=== PATIENT | female | born 1970 | race Caucasian/White ===

== ENCOUNTER 2020-01-30 15:05 | Inpatient (IN) | payer BC ==
[~2020-01-30] VITALS: Ht 157.5 cm; Wt 77.6 kg
[2020-01-30] MEDS ORDERED: ONDANSETRON 4 MG/2 ML (SDV) Z0FRAN IV PRN (15:15)
[2020-01-30] MEDS ORDERED: MELATONIN 3 MG TABLET PO PRN (15:15)
[2020-01-30] MEDS ORDERED: ONDANSETRON 4 MG (ZOFRAN) ORAL DISSOLVE TAB PO PRN (15:15)
[2020-01-30] MEDS ORDERED: ACETAMINOPHEN 325 MG TABLET PO PRN (15:15)
--- NOTE | 2020-01-30 16:50 | NUR ---
RECEIVED FROM [facility], O2 ON PER NC AT 2 LITERS, SALINE LOCK IN LEFT AC, DENIES PAIN, CALL LIGHT WITHIN REACH, ORIENTED TO ROOM AND ISOLATION
--- OUTSIDE RECORDS SUMMARY | 2020-01-30 17:19 | XMS REPORT | Clinical Summary ---
Author Author [facility] Address Unknown Phone Unavailable Care Team Providers Care Staffing Manager Name Role Phone Yesika Lewis MD PP Allergies Comments Active Allergy Reactions Severity Noted Date Ibuprofen Shortness Of High 02/02/2016 Breath Bupropion Shortness Of High 02/02/2016 Breath Medications End Date Status Medication Sig Dispensed Refills Start Date Active etanercept (ENBREL INJECT 1 PEN 12 syringe 3 SURECLICK) 50 MG/ML (50 MG) 8 injectionIndications: SUBCUTANEOUSL Rheumatoid arthritis Y EVERY SEVEN involving multiple sites DAYS. with positive rheumatoid factor (HCC) Active predniSONE (DELTASONE) 5 Take 20 mg x 90 tablet 0 MG tabletIndications: 2 days, 15 mg 9 Rheumatoid arthritis x 2 days, 10 involving multiple sites mg x 2 days, with positive rheumatoid then stay on factor (HCC) 5 mg daily Active Problems Problem Noted Date COPD (chronic obstructive pulmonary disease) 017 Raynaud's disease without gangrene 05/18/2017 Rheumatoid arthritis involving multiple sites with po sitive rheumatoid 02/14/2016 factor Family History Medical History Relation Name Comments No Known Problems Daughter No Known Problems Daughter No Known Problems Daughter Crohn's disease Father Arthritis Mother COPD Mother Diabetes Mother Heart disease Mother Thyroid disease Mother Thyroid disease Sister No Known Problems Sister Relation Name Status Comments Daughter Alive Daughter Alive Daughter Alive Father Exsanguinated Mother Alive Sister Alive Sister Alive Sister House fire (Age 10) Social History Date Tobacco Use Types Packs/Day Years Used Current Every Day Smoker Cigarettes 1 23 Smokeless Tobacco: Former Snuff User Tobacco Cessation: Ready to Quit: No; Co unseling Given: Yes Drinks/Week oz/Week Comments Alcohol Use 0 Standard drinks or equivalent 0.0 No Control Partners Comments Sexually Active Male Yes Sex Assigned at Date Recorded Not on file Industry Job Start Date Occupation Not on file Not on file Not on file Travel End Travel History Travel Start No recent travel history available. Last Filed Vital Signs Reading Time Taken Comments Vital Sign 120/75 06/28/2019 9:11 AM CDT Blood Pressure 93 07/16/2017 9:04 AM CDT Pulse - - Temperature - - Respiratory Rate 98% 07/16/2017 9:04 AM CDT Oxygen Saturation - - Inhaled Oxygen Concentration 81.9 kg (180 lb 8 oz) 06/16/2018 1:01 PM CDT Weight 155.6 cm (5' 1.25") 06/16/2018 1:01 PM CDT Height 33.83 06/16/2018 1:01 PM CDT Body Mass Index Plan of Treatment Care Team Description Date Type Specialty Quincy Alanis MD [address] [id number] 06/26/2020 Office Visit Health Maintenance Due Date Last Done Comments Pneumo-Vaccine: Peds (0-5 01/19/1976 Yrs) & At-Risk Patients (6-64 Yrs) (1 of 1 - PPSV23) DTaP,Tdap,and Td Vaccines 1989 (1 - Tdap) MMR Vaccines-Adult 1989 Cervical Cancer Screening 1991 Influenza Vaccine (#1) 2019 08/15/2015 Breast Cancer 01/19/2020 Screening-Mammogram Colon Cancer Screening 01/19/2020 Zoster Recombinant 01/19/2020 Vaccine (RZV,Shingrix) (1 of 2 - SV 2 Dose Standard) Results Not on filefrom Last 3 Months Insurance Type Payer Benefit Subscriber ID Effective Phone Address Plan / Dates Group BCBS BCBS [employer] xxxxxxxxxxxx 2016-P [phone] [address] [place] [place] [address] Advance Directives For more information, please contact: [phone] Patient Revival Clerk Explanation Type Date Recorded Advance Directives and Living Will Power of Certified Breastfeeding Educator
--- NOTE | 2020-01-30 17:20 | NUR ---
YECENIA GAINES admitted to room 433-1, with an admitting diagnosis of INF A +, COPD, on 01/30/20 from [facility] via [facility], accompanied by EMS STAFF.YECENIA GAINES introduced to surroundings, call light, bed controls, phone, TV, temperature control, lights, meal times, smoking policy, visitor policy, side rail policy, bathrooms and showers. Patient Rights given to patient in the handbook. YECENIA GAINES verbalizes understanding that [facility] is not responsible for the loss or damage to any personal effects or valuables that are kept in the patients posession during their hospitalization. The following Patient Care Plans were discussed with the PT: Discharge Planning, ANXIETY, IMP GAS EXCH, INEFF BREATHING PATTERN, INEFF AIRWAY CLEARANCE, RISK FOR INFECTION, AND ACT INTOL. YECENIA GAINES verbalizes understanding of Interdisciplinary Patient Education. Patient and/or family were informed about the Rapid Response Team and its purpose.
[2020-01-30 17:31] VITALS: BP 116/56
[2020-01-30 19:02] LABS: BASOPHILS % (AUTO) 0 % (0-10); EOSINOPHILS % (AUTO) 0 % (0-10); HEMATOCRIT 35 % (35-52); HEMOGLOBIN 11.6 G/DL (11.5-16.0); LYMPHOCYTES # (AUTO) 1.1 X 10^3 (1.0-4.0); LYMPHOCYTES % (AUTO) 11 % (12-44); MEAN CORPUSCULAR HEMOGLOBIN 28 PG (25-34); MEAN CORPUSCULAR HGB CONC 33 G/DL (32-36); MEAN CORPUSCULAR VOLUME 85 FL (80-99); MONOCYTES # (AUTO) 0.7 X 10^3 (0.0-1.0); MONOCYTES % (AUTO) 8 % (0-12); NEUTROPHILS % (AUTO) 81 % (42-75); PLATELET COUNT 252 10^3/uL (130-400); RED CELL DISTRIBUTION WIDTH 14.6 % (10.0-14.5); WHITE BLOOD COUNT 9.9 10^3/uL (4.3-11.0)
[2020-01-30 19:37] LABS: ERYTHROCYTE SEDIMENTATION RATE 112 MM/HR (0-30)
[2020-01-30 19:54] LABS: ALANINE AMINOTRANSFERASE 20 U/L (0-55); ALBUMIN 3.5 GM/DL (3.2-4.5); ALKALINE PHOSPHATASE 77 U/L (40-136); BILIRUBIN,TOTAL 0.3 MG/DL (0.1-1.0); BUN/CREATININE RATIO 15; CALCIUM 8.1 MG/DL (8.5-10.1); CARBON DIOXIDE 21 MMOL/L (21-32); CHLORIDE 106 MMOL/L (98-107); CREATININE SERUM 0.81 MG/DL (0.60-1.30); GFR ESTIMATED > 60; GLUCOSE 182 MG/DL (70-105); SODIUM 139 MMOL/L (135-145); TOTAL PROTEIN 7.6 GM/DL (6.4-8.2)
[2020-01-30] MEDS ORDERED: ENOXAPARIN 40 MG/0.4 ML (LOVENOX) SYR ONE (20:00)
[2020-01-30] MEDS: ENOXAPARIN 40 MG/0.4 ML (LOVENOX) SYR SC SCH (20:45)
[2020-01-30 20:56] VITALS: BP 127/69
[2020-01-30] MEDS: OSELTAMIVIR 75 MG (TAMIFLU) CAPSULE PO SCH (20:58)
[2020-01-31] VITALS (7 sets, daily range): BP systolic 124–156; BP diastolic 61–79
[2020-01-31 05:08] LABS: BASOPHILS % (AUTO) 0 % (0-10); EOSINOPHILS % (AUTO) 0 % (0-10); HEMATOCRIT 36 % (35-52); HEMOGLOBIN 11.7 G/DL (11.5-16.0); LYMPHOCYTES # (AUTO) 1.5 X 10^3 (1.0-4.0); LYMPHOCYTES % (AUTO) 12 % (12-44); MEAN CORPUSCULAR HEMOGLOBIN 28 PG (25-34); MEAN CORPUSCULAR HGB CONC 32 G/DL (32-36); MEAN CORPUSCULAR VOLUME 86 FL (80-99); MEAN PLATELET VOLUME 9.9 FL (7.4-10.4); MONOCYTES # (AUTO) 0.8 X 10^3 (0.0-1.0); MONOCYTES % (AUTO) 6 % (0-12); NEUTROPHILS # (AUTO) 9.9 X 10^3 (1.8-7.8); NEUTROPHILS % (AUTO) 81 % (42-75); PLATELET COUNT 249 10^3/uL (130-400); RED CELL DISTRIBUTION WIDTH 14.9 % (10.0-14.5); WHITE BLOOD COUNT 12.1 10^3/uL (4.3-11.0)
[2020-01-31 05:35] LABS: BUN/CREATININE RATIO 18; CALCIUM 8.7 MG/DL (8.5-10.1); CARBON DIOXIDE 24 MMOL/L (21-32); CHLORIDE 105 MMOL/L (98-107); CREATININE SERUM 0.78 MG/DL (0.60-1.30); GFR ESTIMATED > 60; GLUCOSE 160 MG/DL (70-105); POTASSIUM 4.6 MMOL/L (3.6-5.0); SODIUM 141 MMOL/L (135-145)
[2020-01-31] MEDS ORDERED: RT-ALBUTEROL/IPRATROPIUM 3 ML (DUONEB) VIAL INH SCH (07:15)
--- NOTE | 2020-01-31 07:17 | Pulmonary Consultation ---
History of Present Illness History of Present Illness Date Seen by Provider: Jan 31, 2020 Time Seen by Provider: 07:09 Date of Admission History of Present Illness 50yo transferred to 4th floor [place] [facility] with admitting dx of Influ A, COPDAE Allergies and Home Medications Allergies Coded Allergies: ibuprofen (Verified Allergy, Mild, 01/30/20) bupropion (Verified Allergy, Unknown, 01/30/20) Past Eigimja-Lttmmd-Athcwk Hx Patient Social History Recent Foreign Travel: No Contact w/Someone Who Travel: No Recent Infectious Disease Expo: No Immunizations Up To Date Date of Influenza Vaccine: Aug 01, 2019 Past Medical History : No Family Medical History Asthma DAUGHTERS Diabetes mellitus 19 MOTHER Gastroenteritis 19 FATHER Hypertension 19 MOTHER Thyroid disease 19 MOTHER G8 SISTER Tuberculosis Review of Systems Time Seen by Provider: 07:21 Sepsis Event Evaluation Height, Weight, BMI Height: '" Weight: lbs. oz. kg; 31.28 BMI Method: Exam Exam Vital Signs Date Time Temp Pulse Resp B/P (MAP) Pulse Ox O2 Delivery O2 Flow Rate FiO2 01/31/20 03:12 36.0 88 20 148/75 (99) 93 Nasal Cannula 2.00 01/31/20 01:05 80 01/31/20 00:29 36.0 87 20 156/79 (104) 93 Nasal Cannula 2.00 01/30/20 21:00 Nasal Cannula 2.00 01/30/20 20:56 36.0 93 20 127/69 (88) 94 Nasal Cannula 2.00 01/30/20 19:00 97 01/30/20 18:20 109 01/30/20 18:00 Nasal Cannula 2.00 01/30/20 17:31 36.6 94 22 116/56 94 Nasal Cannula 2.00 I & O 01/31/20 07:00 Intake Total 1200 ml Balance 1200 ml Height & Weight Height: '" Weight: lbs. oz. kg; 31.28 BMI Method: Capillary Refill: Less Than 3 Seconds Results Lab Laboratory Tests 01/30/20 18:50 01/31/20 04:50 Assessment/Plan Assessment/Plan Influenza A r/o secondary infection -Start rocephin and azithromycin -Check corbett cultures -Check LA -Continue Tamiflu COPDAE -start DuoNeb and advair -Check CXR -Check ABG -Start Abx DMITRY SETHI DO Jan 31, 2020 07:17
[2020-01-31] MEDS ORDERED: RT-ALBUTEROL/IPRATROPIUM 3 ML (DUONEB) VIAL INH PRN (07:30)
[2020-01-31 07:50] LABS: MAGNESIUM 2.7 MG/DL (1.6-2.4); PHOSPHORUS 3.9 MG/DL (2.3-4.7)
[2020-01-31] MEDS: cefTRIAXone FOR IV USE 1,000 MG in WATER (STERILE) FOR INJECTION 10 ML IV SCH ×3 (08:10→10:28)
[2020-01-31] MEDS: OSELTAMIVIR 75 MG (TAMIFLU) CAPSULE PO SCH ×2 (08:10→20:13)
[2020-01-31] MEDS ORDERED: ALBUTEROL/IPRATROP (COMBIVENT RESPIMAT) 4 GM INHALER IH PRN (08:15)
[2020-01-31 08:55] LABS: ABG BASE EXCESS 0.7 MMOL/L (-2.5-2.5); ABG OXYGEN SATURATION 97 % (94-100); ABG PCO2 43 MMHG (35-45); ABG PH 7.39 (7.37-7.43); ABG PO2 120 MMHG (79-93); ABG TCO2 26.6 MMOL/L (21.0-31.0); ALLENS TEST POSITIVE; INSPIRED O2 2 L; PATIENT TEMP 36.7; VENTILATOR NO
[2020-01-31] MEDS: ADVAIR HFA 115/21 MCG INHALER 8 GM IH SCH ×2 (08:57→19:00)
[2020-01-31] MEDS ORDERED: AZITHROMYCIN INJECTION 500 MG in NS (IVPB) 250 ML IV NR (09:00)
[2020-01-31] MEDS: ALBUTEROL/IPRATROP (COMBIVENT RESPIMAT) 4 GM INHALER IH SCH ×4 (10:26→21:52)
[2020-01-31] MEDS: LACTATED RINGERS 1,000 ML IV SCH ×2 (11:15→17:57)
[2020-01-31] MEDS ORDERED: FLUT1AER IN (11:54)
[2020-01-31] MEDS ORDERED: ACET325T38 PO (11:54)
[2020-01-31] MEDS ORDERED: ETAN50PE SC (11:54)
--- NOTE | 2020-01-31 11:58 | NUR ---
CALLED THE PTS ROOM PHONE AND WENT THRU THE EXT MED HISTORY TO COMPLETE THE MED REC SHE WAS ABLE TO TELL ME HER HOME MEDS AND HOW SHE TAKES THEM MATCHES THE EXT MED HIST OTC MEDS: TYLENOL- PRN
--- NOTE | 2020-01-31 12:06 | Diagnostic Imaging Report ---
EXAMINATION: Chest radiograph, portable AP view. DATE: 01/31/2020 8:09 AM hours. INDICATION: 50-year-old female, shortness of breath. COMPARISON: None. FINDINGS: Heart size and mediastinal contours are unremarkable. There is no identified pneumothorax. There is no large pleural effusion. There are reticulonodular appearing opacities in the lungs bilaterally. There are mild bilateral acromioclavicular degenerative changes. IMPRESSION: 1. Reticulonodular appearing opacities in the lungs bilaterally. Infectious and inflammatory etiologies are considered. Dictated by: Dictated on workstation # [id number]
[2020-01-31] MEDS: ENOXAPARIN 40 MG/0.4 ML (LOVENOX) SYR SC SCH (14:29)
--- NOTE | 2020-01-31 16:28 | History & Physical-Hospitalist ---
History of Present Illness HPI/Chief Complaint Татьяна Medina is a 50 year old female with PMH rheumatoid arthritis on Enbrel, COPD, who presented with shortness of breath. She reports that she has not been feeling well for almost a week. She was exposed to a relative that had influenza B. She worsened and presented to [facility] [place]. She was found to have influenza A. She r eports that she had been having fevers at home. She also reports a dry cough. She reports runny nose and sore throat. She reports myalgias. She denies any chest pain. She denies abdominal pain, nausea, and vomiting. She denies back pain. She denies specific joint complaints. She says she has been on Enbrel for about 7 years. She does not wear oxygen at home. Source: patient Exam Limitations: no limitations Date Seen 01/31/20 Time Seen by a Provider: 08:50 Attending Physician Jenifer Monroe MD PCP Yesika Lewis MD Referring Physician Date of Admission Jan 30, 2020 at 16:30 Home Medications & Allergies Home Medications Reviewed patient Home Medication Reconciliation performed by pharmacy medication reconciliations transmission technician and/or nursing. Patients Allergies have been reviewed. Allergies Allergies Coded Allergies ibuprofen (Verified Allergy, Mild, 01/30/20) bupropion (Verified Allergy, Unknown, 01/30/20) Past Tufwsfa-Sajfsi-Fjlxdg Hx Past Med/Social Hx: Reviewed Nursing Past Med/Soc Hx Patient Social History Recent Foreign Travel: No Contact w/other who traveled: No Recent Infectious Disease Expo: No Immunizations Up To Date Date of Influenza Vaccine: Aug 01, 2019 Past Medical History : No Family History Asthma DAUGHTERS Diabetes mellitus 19 MOTHER Gastroenteritis 19 FATHER Hypertension 19 MOTHER Thyroid disease 19 MOTHER G8 SISTER Tuberculosis Review of Systems Constitutional: fever, malaise EENTM: throat pain Respiratory: cough, short of breath Cardiovascular: no symptoms reported Gastrointestinal: no symptoms reported Genitourinary: no symptoms reported Musculoskeletal: no symptoms reported Skin: no symptoms reported Psychiatric/Neurological: No Symptoms Reported Physical Exam Physical Exam Vital Signs Vital Signs - First Documented 01/30/20 17:31 Temp 36.6 Pulse 94 Resp 22 B/P (MAP) 116/56 Pulse Ox 94 O2 Delivery Nasal Cannula O2 Flow Rate 2.00 Capillary Refill : Less Than 3 SecondsLess Than 3 Seconds Height, Weight, BMI Height: '" Weight: lbs. oz. kg; 31.28 BMI Method: General Appearance: No Apparent Distress, Chronically ill Respiratory: No Accessory Muscle Use, No Respiratory Distress, Wheezing Cardiovascular: Regular Rate, Rhythm, No Murmur Gastrointestinal: Normal Bowel Sounds, Non Tender, Soft Extremity: Normal Inspection, Non Tender, Pedal Edema Neurologic/Psychiatric: Alert, Oriented x3, No Motor/Sensory Deficits, Normal Mood/Affect Skin: Normal Color, Warm/Dry Results Results/Procedures Labs Laboratory Tests 01/30/20 18:50 01/31/20 04:50 Patient resulted labs reviewed. Assessment/Plan Admission Diagnosis Acute respiratory failure with hypoxia Admission Status: Inpatient Order (span 2 midnights) Reason for Inpatient Admission: Respiratory failure requiring further evaluation and treatment Assessment and Plan Acute respiratory failure with hypoxia Influenza A infection Possible pneumonia COPD -Influenza test positive for Flu A -Started on Tamiflu -WBC normal, afebrile since admission -CXR with bilateral opacities -Procal slightly elevated -Started on Rocephin and Azithromycin -COVID test pending -Supplemental oxygen as needed -Pulmonology consulted, appreciate assistance -Aparna and Al ordered Rheumatoid arthritis Immunosuppression -Clinically significant, no acute management needs DVT Prophylaxis: Lovenox Diagnosis/Problems Diagnosis/Problems (1) Influenza A (2) Acute respiratory failure with hypoxia (3) Rheumatoid arthritis (4) Immunosuppression due to drug therapy (5) COPD (chronic obstructive pulmonary disease) Clinical Quality Measures DVT/VTE Risk/Contraindication: Risk Factor Score Per Nursin RFS Level Per Nursing on Admit: 4+=Very High LORRIE BENITES MD Jan 31, 2020 16:28
[2020-01-31 16:35] LABS: BILIRUBIN,URINE NEGATIVE (NEGATIVE); CLARITY,URINE TURBID; COLOR,URINE YELLOW; GLUCOSE, URINE (UA) NEGATIVE (NEGATIVE); KETONES,URINE NEGATIVE (NEGATIVE); LEUKOCYTE ESTERASE ,URINE NEGATIVE (NEGATIVE); NITRITE,URINE NEGATIVE (NEGATIVE); PROTEIN,URINE TRACE (NEGATIVE)
[2020-01-31 16:42] LABS: AMORPHOUS SEDIMENT,UR MOD AMOR URATES /LPF; BACTERIA,URINE LARGE /HPF; RBC,URINE RARE /HPF; SQUAMOUS EPITHELIAL CELL,UR 0-2 /HPF; WBC,URINE RARE /HPF
[2020-01-31] MEDS ORDERED: ALPRAZolam 0.25 MG (XANAX) TAB PO PRN (21:30)
[2020-01-31] MEDS ORDERED: CALCIUM CARBONATE 500 MG (TUMS) TAB.CHEW PO PRN (21:30)
[2020-01-31] MEDS ORDERED: diphenhydrAMINE 25 MG TAB (BENADRYL) PO PRN (21:30)
[2020-01-31] MEDS ORDERED: HYDROcodone/APAP 5 MG/325 MG (LORTAB) TAB PO PRN (21:30)
[2020-01-31] MEDS ORDERED: ONDANSETRON 4 MG/2 ML (SDV) Z0FRAN IVP PRN (21:30)
[2020-01-31] MEDS ORDERED: MELATONIN 3 MG TABLET PO PRN (21:30)
[2020-02-01] MEDS: ALBUTEROL/IPRATROP (COMBIVENT RESPIMAT) 4 GM INHALER IH SCH ×4 (02:02→10:28)
[2020-02-01] MEDS: LACTATED RINGERS 1,000 ML IV SCH ×2 (02:03→10:45)
[2020-02-01 05:22] VITALS: BP 131/75
--- NOTE | 2020-02-01 06:29 | Pulmonary Progress Note ---
Subjective Date Seen by a Provider: Feb 01, 2020 Time Seen by a Provider: 06:57 Subjective/Events-last exam Pt wants to go home. Sepsis Event Evaluation Height, Weight, BMI Height: '" Weight: lbs. oz. kg; 31.28 BMI Method: Focused Exam Lactate Level 01/31/20 11:10: Lactic Acid Level 1.44 Exam Exam Vital Signs Date Time Temp Pulse Resp B/P (MAP) Pulse Ox O2 Delivery O2 Flow Rate FiO2 02/01/20 05:22 36.6 78 20 131/75 (93) 95 Nasal Cannula 3.50 3.50 02/01/20 01:06 90 01/31/20 23:24 36.6 78 20 146/72 (96) 93 Nasal Cannula 3.50 3.50 01/31/20 20:12 36.4 82 20 145/62 (89) 93 Nasal Cannula 3.50 01/31/20 20:00 Nasal Cannula 3.50 01/31/20 19:16 Nasal Cannula 2.00 01/31/20 19:07 101 01/31/20 19:00 98 Nasal Cannula 3.00 01/31/20 17:07 36.4 87 20 130/65 (86) 97 Nasal Cannula 3.50 01/31/20 14:00 Nasal Cannula 2.00 01/31/20 12:25 36.0 92 20 124/61 (82) 95 Nasal Cannula 2.00 01/31/20 12:23 100 01/31/20 10:33 Nasal Cannula 2.00 01/31/20 08:47 Nasal Cannula 2.00 01/31/20 08:30 36.8 01/31/20 08:25 35.2 99 22 133/62 (85) 93 Nasal Cannula 2.00 01/31/20 08:15 Nasal Cannula 2.00 01/31/20 07:00 94 I & O 02/01/20 07:00 Intake Total 2500 ml Output Total 1450 ml Balance 1050 ml Height & Weight Height: '" Weight: lbs. oz. kg; 31.28 BMI Method: General Appearance: No Apparent Distress, Chronically ill Respiratory: No Accessory Muscle Use, No Respiratory Distress, Wheezing Cardiovascular: Regular Rate, Rhythm, No Murmur Capillary Refill: Less Than 3 Seconds Extremity: Normal Inspection, Non Tender, Pedal Edema Neurologic/Psychiatric: Alert, Oriented x3, No Motor/Sensory Deficits, Normal Mood/Affect Skin: Normal Color, Warm/Dry Results Lab Laboratory Tests 01/30/20 18:50 01/31/20 04:50 Assessment/Plan Assessment/Plan Influenza A r/o secondary infection with hypoxia - rocephin and azithromycin -Check corbett cultures -Repeat labs pending -Continue Tamiflu -COVID is negative COPDAE -start DuoNeb and advair -Check CXR -Check ABG -Start Abx -Pt may need home 02 upon discharge Tobacco dependance -Education RA Possible home today await repeat labs and home 02 qualification. Pt wants to go home today DMITRY SETHI DO Feb 01, 2020 06:29
[2020-02-01 07:27] LABS: HEMOGLOBIN 11.6 G/DL (11.5-16.0); MEAN PLATELET VOLUME 9.5 FL (7.4-10.4); RED CELL DISTRIBUTION WIDTH 15.3 % (10.0-14.5); WHITE BLOOD COUNT 11.6 10^3/uL (4.3-11.0)
[2020-02-01] MEDS: ADVAIR HFA 115/21 MCG INHALER 8 GM IH SCH (07:31)
[2020-02-01 07:51] LABS: ALANINE AMINOTRANSFERASE 33 U/L (0-55); ALBUMIN 3.4 GM/DL (3.2-4.5); ALKALINE PHOSPHATASE 72 U/L (40-136); BILIRUBIN,TOTAL 0.2 MG/DL (0.1-1.0); BUN/CREATININE RATIO 19; CALCIUM 8.7 MG/DL (8.5-10.1); CARBON DIOXIDE 22 MMOL/L (21-32); CHLORIDE 106 MMOL/L (98-107); CREATININE SERUM 0.79 MG/DL (0.60-1.30); GFR ESTIMATED > 60; GLUCOSE 115 MG/DL (70-105); MAGNESIUM 2.2 MG/DL (1.6-2.4); PHOSPHORUS 3.2 MG/DL (2.3-4.7); POTASSIUM 3.8 MMOL/L (3.6-5.0); SODIUM 142 MMOL/L (135-145); TOTAL PROTEIN 7.4 GM/DL (6.4-8.2)
[2020-02-01] MEDS: cefTRIAXone FOR IV USE 1,000 MG in WATER (STERILE) FOR INJECTION 10 ML IV SCH (08:14)
[2020-02-01] MEDS ORDERED: SENNA W/DOCUSATE (SENOKOT S) TABLET PO SCH (09:00)
[2020-02-01] MEDS ORDERED: AZITHROMYCIN 250 MG TAB (ZITHROMAX) PO SCH (09:00)
[2020-02-01] MEDS ORDERED: AZITHROMYCIN INJECTION 250 MG in NS (IVPB) 250 ML IV SCH (09:00)
[2020-02-01] MEDS: OSELTAMIVIR 75 MG (TAMIFLU) CAPSULE PO SCH (09:39)
[2020-02-01] MEDS ORDERED: OSLT75C PO (09:41)
[2020-02-01] MEDS ORDERED: CEFD300C3 PO (09:43)
[2020-02-01 09:50] VITALS: BP 121/59
--- NOTE | 2020-02-01 10:16 | NUR ---
SPO2 86% ON ROOM AIR @ REST. PLACED PT ON O2 @ 2 LPM. WALKED PT FOR 2 MINUTES AND SPO2 DROPPED TO 88%, INCREASED O2 TO 4 LPM. WALKED PT FOR ANOTHER 3 MINUTES, SPO2 STAYED ABOVE 90%. Addendum: 02/01/20 at 1037 by NISH STILES RT Amended: Links added.
--- NOTE | 2020-02-01 10:57 | NUR ---
NOTE THAT PT IS BEING DISCHARGED TO HOME -- IV REMOVED
--- NOTE | 2020-02-01 11:23 | Discharge Summary ---
Discharge Summary Hospital Course Was the Problem List Reviewed?: Yes Problems/Dx: (1) Influenza A Status: Acute (2) Acute respiratory failure with hypoxia Status: Acute (3) Rheumatoid arthritis Status: Chronic (4) Immunosuppression due to drug therapy Status: Chronic (5) COPD (chronic obstructive pulmonary disease) Status: Chronic Hospital Course Date of Admission: Jan 30, 2020 at 16:30 Admission Diagnosis : Acute respiratory failure with hypoxia Family Physician/Provider: Yesika Sampson MD Date of Discharge: 02/01/20 Discharge Diagnosis: Acute respiratory failure with hypoxia due to influenza and pneumonia Hospital Course: Татьяна Medina is a 50-year-old female who presented with shortness of breath. Her initial testing found her to be positive for influenza A. She was started on Tamiflu. She was also tested for coronavirus and this was negative. She was also found to have a bacterial pneumonia and was treated with IV antibiotics while inpatient and was transitioned to oral Omnicef on discharge. She did have a new oxygen requirement and was given 2 L with rest and 4 L with exertion. She was discharged in stable condition. She should follow-up with her primary care physician. Labs and Pending Lab Test: Laboratory Tests 02/01/20 07:20: White Blood Count 11.6H, Red Blood Count 4.21L, Hemoglobin 11.6, Hematocrit 37, Mean Corpuscular Volume 87, Mean Corpuscular Hemoglobin 28, Mean Corpuscular Hemoglobin Concent 32, Red Cell Distribution Width 15.3H, Platelet Count 304, Mean Platelet Volume 9.5, Sodium Level 142, Potassium Level 3.8, Chloride Level 106, Carbon Dioxide Level 22, Anion Gap 14, Blood Urea Nitrogen 15, Creatinine 0.79, Estimat Glomerular Filtration Rate > 60, BUN/Creatinine Ratio 19, Glucose Level 115H, Calcium Level 8.7, Corrected Calcium 9.2, Phosphorus Level 3.2, Magnesium Level 2.2, Total Bilirubin 0.2, Aspartate Amino Transf (AST/SGOT) 25, Alanine Aminotransferase (ALT/SGPT) 33, Alkaline Phosphatase 72, B-Type Natriuretic Peptide 65.4, Total Protein 7.4, Albumin 3.4, Procalcitonin 0.24H Home Meds Active Cefdinir 300 Mg Capsule 300 Mg PO BID 4 Days Tamiflu (Oseltamivir Phosphate) 75 Mg Cap 75 Mg PO BID 3 Days Reported Tylenol (Acetaminophen) 325 Mg Tablet 650 Mg PO Q8H PRN Breo Ellipta 100-25 Mcg INH (Fluticasone/Vilanterol) 1 Each Blst.w.dev 1 Puff IN DAILY Enbrel (Etanercept) 50 Mg/1 Ml Pen.injctr 50 Mg SC FRIDAY Assessment/Pt Instructions Take medications as prescribed. Complete her course of Tamiflu for influenza. Complete her antibiotics for her pneumonia even appear feeling better. Follow up with her primary care physician. Discharge Planning: <30 minutes discharge planning Discharge Instructions Discharge Diet: No Restrictions Activity as Tolerated: Yes Pneumonia Vaccine Order Indica: Yes Discharge Physical Examination Vital Signs Vital Signs Date Time Temp Pulse Resp B/P (MAP) Pulse Ox O2 Delivery O2 Flow Rate FiO2 02/01/20 10:28 96 Nasal Cannula 2.00 02/01/20 09:50 36.6 86 20 121/59 (79) General Appearance: No Apparent Distress, Chronically ill Respiratory: No Accessory Muscle Use, No Respiratory Distress, Wheezing Cardiovascular: Regular Rate, Rhythm, No Edema, No Murmur Gastrointestinal: Normal Bowel Sounds, Non Tender, Soft Extremity: Normal Inspection, Non Tender, No Pedal Edema Skin: Normal Color, Warm/Dry Neurologic/Psychiatric: Alert, Oriented x3, No Motor/Sensory Deficits, Normal Mood/Affect Allergies: Coded Allergies: ibuprofen (Verified Allergy, Mild, 01/30/20) bupropion (Verified Allergy, Unknown, 01/30/20) Copy Copies To 1: YESIKA SAMPSON MD Discharge Summary Date of Admission Jan 30, 2020 at 16:30 Date of Discharge Discharge Date: Feb 01, 2020 Discharge Time: 11:22 Admission Diagnosis Acute respiratory failure with hypoxia Discharge Diagnosis Acute respiratory failure with hypoxia, Influenza A infection, Pneumonia (1) Influenza A Status: Acute (2) Acute respiratory failure with hypoxia Status: Acute (3) Rheumatoid arthritis Status: Chronic (4) Immunosuppression due to drug therapy Status: Chronic (5) COPD (chronic obstructive pulmonary disease) Status: Chronic (6) Pneumonia Status: Acute Clinical Quality Measures DVT/VTE Risk/Contraindication: Risk Factor Score Per Nursin RFS Level Per Nursing on Admit: 4+=Very High LORRIE BENITES MD Feb 01, 2020 11:23
--- NOTE | 2020-02-01 12:16 | NUR ---
CM/SS: Visited with pt as to plan for discharge Plan: Pt will be discharged to home DME: Pt will need Oxygen upon discharge Summary: Visited with pt as to her needing oxygen prior to leaving the hospital. She asking how long it will take, this worker indicates she is working on it, unsure of timeframe. She is ready to go. She is ok to use [facility]. Upon contacting [facility] they are unable to take new patients due to oxygen concentrator shortage. They have to deny the pt. Referral sent to [facility]. They will be able to deliver the oxygen to the hospital, prior to pt discharging.
[2020-02-01 13:52] VITALS: BP 121/59
== END 2020-02-01 13:55 | disposition home or self-care (01) | DRG 193 ==
LOC: 4TH 16:30
PROVIDERS: ADMIT Family Medicine; ATTEND Family Medicine
DX: J10.1 Influenza due to other identified influenza virus with other respiratory manifestations (principal); J96.01 Acute respiratory failure with hypoxia; J44.1 Chronic obstructive pulmonary disease with (acute) exacerbation; J15.9 Unspecified bacterial pneumonia; M06.9 Rheumatoid arthritis, unspecified; F17.200 Nicotine dependence, unspecified, uncomplicated; Z20.818 Contact with and (suspected) exposure to other bacterial communicable diseases
CPT/HCPCS: 36415; 71045; 80048; 80053; 81000; 82728; 82805; 83605; 83615; 83735; 83880; 84100; 84145; 85025; 85027; 85379; 85652; 86141; 87088; 87449; 87899; 93005; 94640; 94664; 94760; 94761

== ENCOUNTER → 2023-06-16 | Outpatient (CLI) | payer BC, OTHER ==
[~2023-06-16] MED LIST: ACET325T38 PO; CEFD300C3 PO; ETAN50PE3 SC; FLUT1AER IN; OSLT75C PO; RT-ALBUTEROL SULF 2.5 MG/3 ML PRE-MIX VIAL INH ONE
== END ==
LOC: RT 10:05
PROVIDERS: ATTEND Family Medicine
DX: Z02.71 Encounter for disability determination (principal); J44.9 Chronic obstructive pulmonary disease, unspecified
CPT/HCPCS: 94060